=== PATIENT | female | born 1985 | race African-American/Black ===

== ENCOUNTER 2017-11-05 19:11 | Emergency (ER) | payer OTHER ==
[~2017-11-05] VITALS: Ht 162.6 cm; Wt 70.8 kg
[2017-11-05] MEDS ORDERED: FLEXERIL PO (21:40)
[2017-11-05] MEDS ORDERED: IBUPROFEN 800800 M1 PO (21:40)
[2017-11-05] MEDS ORDERED: HYDROCODONE-AP1 EAC6 PO (21:40)
[2017-11-05 21:57] VITALS: BP 151/94
== END 2017-11-05 21:58 | disposition home or self-care (01) ==
LOC: M.ERS 19:11
DX: S30.0XXA Contusion of lower back and pelvis, initial encounter (principal); W00.0XXA Fall on same level due to ice and snow, initial encounter; Y93.89 Activity, other specified; Y92.89 Other specified places as the place of occurrence of the external cause; Y99.8 Other external cause status

== ENCOUNTER 2017-11-26 09:43 | Emergency (ER) | payer OTHER ==
[~2017-11-26] VITALS: Ht 162.6 cm; Wt 70.3 kg
[~2017-11-26 09:43] MED LIST: FLEXERIL PO; HYDROCODONE-AP1 EAC6 PO; IBUPROFEN 800800 M1 PO
[2017-11-26] MEDS ORDERED: HYDROCODONE-AP1 EAC6 PO (11:25)
[2017-11-26 11:38] VITALS: BP 131/84
== END 2017-11-26 11:40 | disposition home or self-care (01) ==
LOC: M.ERS 09:43
DX: M54.5 Low back pain (principal)